=== PATIENT | female | born 1995 | race Caucasian/White ===

== ENCOUNTER 2017-12-08 17:03 | Emergency (ER) | payer OTHER ==
[2017-12-08 17:18] VITALS: BP 128/77
--- NOTE | 2017-12-08 17:37 | UC ---
Throat Pain/Nasal Kyree HPI - HPI Summary HPI Summary: Patient is a 22-year-old was otherwise healthy female presenting to the with chief complaint of throat pain, sinus congestion, sore throat, teeth pain, cough and has had low-grade fevers. Does have been present for 1.5 weeks. She denies any sweats or chills. Fever on arrival is 100.7. She has been otherwise healthy. She takes no medications. Denies any allergies or history of sinus infections. Denies any history of URI. We'll symptoms have remained constant, they have not worsened or improved. Symptoms are aggravated by nothing and alleviated with nothing. She is also having problems with sleep over the past 2 nights. - History of Current Complaint Chief Complaint: UCRespiratory Stated Complaint: HEADACHE, SINUS COMPLAINT Time Seen by Provider: 12/08/17 17:15 Hx Obtained From: Patient Hx Last Menstrual Period: 11/21/17 ?: No Onset/Duration: Sudden Onset Severity: Moderate Pain Intensity: 0 Pain Scale Used: 0-10 Numeric - Epiglottits Risk Factors Epiglottis Risk Factors: Negative - Allergies/Home Medications Allergies/Adverse Reactions: Allergies Allergy/AdvReac Type Severity Reaction Status Date / Time No Known Allergies Allergy Verified 12/08/17 17:18 PMH/Surg Hx/FS Hx/Imm Hx Previously Healthy: Yes - Surgical History Surgical History: None - Social History Occupation: Employed Full-time Lives: With Family Alcohol Use: None Substance Use Type: None Smoking Status (MU): Never Smoked Tobacco Review of Systems Constitutional: Negative Skin: Negative Eyes: Negative ENT: Sore Throat, Nasal Discharge, Sinus Congestion, Sinus Pain/Tenderness Respiratory: Negative Cardiovascular: Negative Motor: Negative Neurovascular: Negative Musculoskeletal: Negative Neurological: Headache All Other Systems Reviewed And Are Negative: Yes Physical Exam Triage Information Reviewed: Yes Appearance: Well-Appearing, No Pain Distress, Well-Nourished Vital Signs: Initial Vital Signs Temp 100.1 F 12/08/17 17:12 Pulse 108 12/08/17 17:12 Resp 18 12/08/17 17:12 BP 128/77 12/08/17 17:12 Pulse Ox 100 12/08/17 17:12 Vital Signs Reviewed: Yes Eye Exam: Normal Dental: Positive: Other: - No evidence of dental abscess or lesions, pain on palpation worse to the right sided lower jaw Neck exam: Normal Neck: Positive: Supple, Enlarged Nodes @ - bilateral cervical anterior Respiratory: Positive: Chest non-tender, Lungs clear Cardiovascular Exam: Normal Cardiovascular: Positive: RRR Musculoskeletal Exam: Normal Musculoskeletal: Positive: Strength Intact Psychological: Positive: Normal Response To Family Skin Exam: Normal Throat Pain/Nasal Course/Dx - Course Course Of Treatment: During the course of treatment, vital signs are noted to be tachycardic and with an elevated temperature at 100.7. She took one Tylenol yesterday and states this did not improve her symptoms. On physical examination her lungs are CTA, RRR. Only slight pain to palpation of the maxillary sinuses. Pain to T palpation of the jaw. She endorses copious amount of green discharge from bilateral nares and endorses a mild headache. Denies any visual changes. Endorses throat pain however no pharyngeal erythema or exudates are noted. Bilateral LAD to cervical anterior lymph nodes is noted. She is given Augmentin and is encouraged to wait approximate 2-3 days prior to taking this medication to allow for a possible improvement of symptoms with [id number] vitamins, fluids, Flonase and Sudafed. She is okay with this plan at discharge. I strongly encouraged her to follow up with her PCP for any worsening or changing symptoms. - Differential Dx/Diagnosis Provider Diagnoses: Sinusitis Discharge - Sign-Out/Discharge Documenting (check all that apply): Discharge/Admit/Transfer - Discharge Plan Condition: Stable Disposition: HOME Prescriptions: Amoxicillin/Clavulanate TAB* [Augmentin TAB 875*] 875 mg PO BID #14 tab Fluticasone NASAL SPRAY 50MCG* [Flonase NASAL SPRAY 50MCG*] 2 spray BOTH NARES DAILY #1 btl Pseudoephedrine HCl [Sudafed 24-Hour] 240 mg PO DAILY #10 tab.er.24h Patient Education Materials: Sinusitis (ED), Upper Respiratory Infection (ED), Warm Compress or Soak (ED) Referrals: Ramiro Contreras MD [Primary Care Provider] - Additional Instructions: I have given you information on upper respiratory infections as well as sinus infections. If you do not have any improvement in the next few days, take the Augmentin twice daily Flonase 2 sprays each near once daily for any congestion Sudafed, take one tablet in the morning Drink plenty of fluids (10 glasses of water daily) [id number] zinc and emergent-C powder and Airborne (chewables or gummies or tabs) will also help with symptoms and improve the timing of year sinus infection - Billing Disposition and Condition Condition: STABLE Disposition: Home
== END 2017-12-08 18:05 | disposition home or self-care (01) ==
LOC: UCEAST 17:03
DX: J32.9 Chronic sinusitis, unspecified (principal)
CPT/HCPCS: 87651; 99202; G0463

== ENCOUNTER 2018-05-04 16:48 | Emergency (ER) | payer BC, OTHER ==
[2018-05-04 17:15] VITALS: BP 134/79
--- NOTE | 2018-05-04 17:36 | UC ---
Abdominal Pain Female HPI - HPI Summary HPI Summary: Patient presents with an unremarkable past medical history. She presents with complaints of epigastrium pain onset 4-5 days. She states the pain does not radiate, and not influenced by food or any empty stomach. She describes it as sharp ad a times will have some dizziness. She denies fever, chills, nausea, vomiting, diarrhea, dysuria, abnormal vaginal discharge or bleeding. She denies any travel, but does report she had had ill co-workers. - History of Current Complaint Chief Complaint: UCAbdominalPain Stated Complaint: ABD PAIN Time Seen by Provider: 05/04/18 17:20 Hx Obtained From: Patient Hx Last Menstrual Period: 04/11/18 ?: No - LMP 3 week ago. Onset/Duration: Lasting Hours Timing: Intermittent Episodes Lasting: Severity Initially: Moderate Severity Currently: None Pain Intensity: 4 Location: Epigastric Radiates: No Character: Sharp Aggravating Factor(s): Nothing Alleviating Factor(s): Nothing Associated Signs and Symptoms: Positive: Dizzy Allergies/Adverse Reactions: Allergies Allergy/AdvReac Type Severity Reaction Status Date / Time No Known Allergies Allergy Verified 05/04/18 17:15 Home Medications: Home Medications Acetaminophen [Pain Relief] 325 mg PO ONCE PRN 05/04/18 [History Confirmed 05/04] PMH/Surg Hx/FS Hx/Imm Hx Previously Healthy: Yes - Surgical History Surgical History: None - Family History Known Family History: Negative: Cardiac Disease, Hypertension - Social History Occupation: Student Lives: Alone Alcohol Use: None Substance Use Type: None Smoking Status (MU): Never Smoked Tobacco Review of Systems All Other Systems Reviewed And Are Negative: Yes Constitutional: Positive: Negative Skin: Positive: Negative Eyes: Positive: Negative ENT: Positive: Negative Respiratory: Positive: Negative Cardiovascular: Positive: Negative Gastrointestinal: Positive: Abdominal Pain Genitourinary: Positive: Negative Motor: Positive: Negative Neurovascular: Positive: Negative Musculoskeletal: Positive: Negative Neurological: Positive: Negative Psychological: Positive: Negative Physical Exam Triage Information Reviewed: Yes Appearance: Well-Appearing Vital Signs: Initial Vital Signs Temp 99 F 05/04/18 17:10 Pulse 78 05/04/18 17:10 Resp 18 05/04/18 17:10 BP 134/79 05/04/18 17:10 Pulse Ox 100 05/04/18 17:10 Vital Signs Reviewed: Yes Eye Exam: Normal ENT Exam: Normal Neck exam: Normal Respiratory Exam: Normal Abdominal Exam: Other - tenderness on palpation of the epigasrium Bowel Sounds: Positive: Present Skin Exam: Normal Abd Pain Female Course/Dx - Course Course Of Treatment: Patient presents with an unremarkable past medical history. She presents with 4-5 days of epigastrium pain that has been intermittent. On exam she was not having pain, normal vital signs, and nontoxic appearance. I discussed with her that if she wanted to have a complete work-up today she would have to go to the ER . I discussed differential possibilities of this type of pain could be gallbladder disease, PUD, viral syndrome, early appendicits. I also discussed my limitations at this site at this time to throughly evaluate and precisly diagnose her symptoms today. However, based on her presentation, clincial findings and stability I thought it reasonable to treat her conservativity with a trial of carafate 1 g, QID and that she should schedule an appointment with her PCP or if her symptoms became worse to go to the ER at once. - Differential Dx/Diagnosis Differential Diagnosis: Other - ABDOMINAL PAIN GASTRITIS Provider Diagnoses: ABDOMINAL PAIN. GASTRITIS. PUD. Early appendicitis. H. pylori. viral syndome Discharge - Sign-Out/Discharge Documenting (check all that apply): Patient Departure All imaging exams completed and their final reports reviewed: No Studies - Discharge Plan Condition: Stable Disposition: HOME Prescriptions: Sucralfate TAB* [Carafate*] 1 gm PO QID #40 tab Patient Education Materials: Gastritis (DC) Referrals: No Primary Care Phys,NOPCP [Primary Care Provider] - Additional Instructions: Patient understands that I am treating her based on my clinical suspicion and I was not able to perform any testing that would prove this at this time. Patient will follow up with pcp. - Billing Disposition and Condition Condition: STABLE Disposition: Home
== END 2018-05-04 17:38 | disposition home or self-care (01) ==
LOC: UCEAST 16:48
DX: K29.70 Gastritis, unspecified, without bleeding (principal); K27.9 Peptic ulcer, site unspecified, unspecified as acute or chronic, without hemorrhage or perforation; K37 Unspecified appendicitis; B96.81 Helicobacter pylori [H. pylori] as the cause of diseases classified elsewhere; B34.9 Viral infection, unspecified
CPT/HCPCS: 99212; G0463

== ENCOUNTER 2018-12-12 22:25 | Inpatient (IN) | payer BC ==
[2018-12-12] MEDS ORDERED: Lactated Ringers 1000 ML Bag* 1,000 ML IV SCH (23:45)
[2018-12-12] MEDS ORDERED: Buffered Lidocaine 1% SYRIN* 1 ML/SYRINGE INTRADERM ONE (23:53)
[2018-12-12] MEDS ORDERED: Promethazine INJ(RESTRICTED)* 25 MG/ML 1 ML VIAL IV ONE (23:53)
[2018-12-12] MEDS ORDERED: Nalbuphine* 10 MG/ML 1 ML VIAL IV ONE (23:53)
[2018-12-12] MEDS ORDERED: Lactated Ringers 1000 ML Bag* 1,000 ML IV ONE (23:53)
[2018-12-13 00:07] LABS: ABS Basophils 0.1 10^3/ul (0-0.2); ABS Lymphocytes 0.9 10^3/ul (1.0-4.8); ABS Monocytes 0.5 10^3/ul (0-0.8); ABS Neutrophils 13.1 10^3/ul (1.5-7.7); Hematocrit 34 % (35-47); Hemoglobin 11.2 g/dL (12.0-16.0); Lymphocyte % 6.3 %; Mean Corpuscular HGB Conc 33 g/dL (31-36); Mean Corpuscular Hemoglobin 26 pg (27-31); Mean Corpuscular Volume 78 fL (80-97); Mean Platelet Volume 8.6 fL (7.4-10.4); Platelet Count 295 10^3/uL (150-450); Red Blood Count 4.35 10^6 /uL (3.70-4.87); Red Cell Distribution Width 15 % (10-15); White Blood Count 14.6 10^3/uL (3.5-10.8)
[2018-12-13 00:30] LABS: Albumin 3.8 g/dL (3.2-5.2); Albumin/Globulin Ratio 1.1 (1-3); BUN/Creatinine Ratio 15.3 (8-20); Calcium 9.5 mg/dL (8.6-10.3); EGFR African American 121.5 (>60); EGFR Non-African American 100.4 (>60); Globulin 3.6 g/dL (2-4); Total Bilirubin 0.3 mg/dL (0.2-1.0); Total Protein 7.4 g/dL (6.4-8.9); Uric Acid 6.7 mg/dL (2.3-6.6)
--- NOTE | 2018-12-13 00:33 | HP ---
General Information - Reason for Visit , IUP@37+1, SROM, labor - General Information Maternal Age: 23 Grav: 1 Para: 0 SAB: 0 IEA: 0 Estimated Due Date: 01/01/19 Determined By: Early Ultrasound Gestational Age in Weeks/Days: 37+1 Maternal Blood Type and Rh: O Positive - Results this Serology/RPR Result: Non-Reactive Rubella Result: Immune HBsAg Result: Negative HIV Result: Negative GBS Culture Result: Negative Past Medical History Pertinent Past Medical History: Non-Contributory Past Medical History Comment: No current medical problems Pertinent Past Surgical History: None Pertinent Family History: Non-Contributory - Antepartal Records Antepartal Records: Reviewed, Uncomplicated Review of Systems Constitutional: Uncomfortable CV Complaint: No Respiratory: Shortness of Breath: No Gastrointestinal: No Nausea/Vomiting, Normal Bowel Movement Genitourinary: Leaking Fluid, No Dysuria, No Bleeding Musculoskeletal: Back Pain, Contractions Neurological: No Headache, No Visual Changes Movement: Normal Exam Allergies/Adverse Reactions: Allergies No Known Allergies Allergy (Verified 12/12/18 23:09) Temp 98.7, HR 88, RR 18, 145/91, O2 99 Lab Values - Entire Visit: Laboratory Tests 12/12/18 12/12/18 22:45 23:55 WBC 14.6 H RBC 4.35 Hgb 11.2 L Hct 34 L MCV 78 L MCH 26 L MCHC 33 RDW 15 Plt Count 295 MPV 8.6 Neut % (Auto) 89.9 Lymph % (Auto) 6.3 Sandoval % (Auto) 3.2 Eos % (Auto) 0.0 Baso % (Auto) 0.6 Absolute Neuts (auto) 13.1 H Absolute Lymphs (auto) 0.9 L Absolute Monos (auto) 0.5 Absolute Eos (auto) 0.0 Absolute Basos (auto) 0.1 Absolute Nucleated RBC 0.0 Nucleated RBC % 0.0 Vag Amniotic Fld Detect Positive - Measurements Height: 5 ft 5 in Weight: 139 lb Weight in lbs: 139.426152 Body Mass Index (BMI): 23.1 Pre- Weight: 108 lb Weight Gained This : 31 lbs and 0 ozs - Exam Breast: Breast Exam Deferred CVA: No CVA Tenderness Extremities: No Edema Heart: Normal Rhythm/Heart Sounds HEENT: No Significant Findings Lungs: Clear Bilaterally Rectal: Rectal Exam Deferred Reflexes: DTR 2+ - Abdominal Exam Abdomen Exam: Non-Tender - Ultrasound/Biophysical Profile Ultrasound Status: Not Done Targeted Exam Findings Estimated Weight: 6lbs Cervical Exam: 3cm - Exam by RN Effacement: 70% Station: -1 Presenting Part: Vertex Membrane Status: SROM Amniotic Fluid Evaluation: Positive ROM Plus EFM Findings - External Monitor Findings Baseline Heart Rate: 130 External Monitor Findings: Accelerations Present, Variability Moderate - Period of consistent variable decels with contractions, resolved with fluids, O2 , position changes Contractions: Regular - q2-3 mins Assessment/Plan - Assessment , IUP@37+1, SROM/Labor GBS negative, O+ SROM 0900, clear fluid, afebrile No evidence of metabolic acidemia Regular contractions, pt uncomfortable PARQ discussion about pain medication options. Pt requesting epidural. Pt with elevated BPs on admission, +1 UA dip towards end of - Plan Plan: Admit - Anticipate Vaginal Delivery Plan Comment: Admit to L&D Epidural now, anesthesia aware VE PRN PEC labs anticipate progression to - Date/Time of Admission Date of Admission: 12/13/18 Time of Admission: 23:30
[2018-12-13] MEDS ORDERED: OBEPIDURAL* 250 ML EPIDURAL ONE (00:57)
[2018-12-13] MEDS ORDERED: Famotidine TAB* 20 MG PO PRN (01:35)
[2018-12-13] MEDS ORDERED: Phenylephrine 40 MCG/ML SYRINGE IV PUSH PRN (01:35)
[2018-12-13] MEDS ORDERED: Lactated Ringers 1000 ML Bag* 1,000 ML IV ONE (01:35)
[2018-12-13] MEDS ORDERED: Sodium Citrate/Citric Acid* 15 ML UDC PO PRN (01:35)
[2018-12-13] MEDS ORDERED: OBEPIDURAL* 250 ML EPIDURAL SCH (02:00)
[2018-12-13] MEDS ORDERED: Lactated Ringers 1000 ML Bag* 1,000 ML IV SCH ×2 (02:00→06:00)
[2018-12-13] MEDS ORDERED: Oxytocin in LR* 20 UNITS/1,000 ML BAG IVPB ONE (03:44)
[2018-12-13 04:07] LABS: Urine Benzodiazepine Screen None Detected (None Detect); Urine Opiates Screen None Detected (None Detect)
[2018-12-13] MEDS ORDERED: Dibucaine 1% 28.35 GM TUBE PR PRN (05:21)
[2018-12-13] MEDS ORDERED: Glycerin ADULT SUPP PR PRN (05:21)
[2018-12-13] MEDS ORDERED: Witch Hazel PAD* JAR TOPICAL PRN (05:21)
[2018-12-13] MEDS ORDERED: Acetaminophen TAB* 325 MG PO PRN (05:21)
--- NOTE | 2018-12-13 05:33 | PN ---
Progress Note - Progress Note Date of Service: 12/13/18 Note: Call from RN, pt feels like she needs to have a bowel movement Pt resting in bed, comfortable, with CEI infusing VE: 10/100/+2 FHR: 125, moderate variability, +accels, occasional variable decel - no evidence of acidemia Contractions: q3-4mins - regular contraction pattern Requesting NICU presence given GA Instructed pt on how to push. Pt to begin pushing.
--- NOTE | 2018-12-13 05:38 | PROCNOTE ---
[facility] OB: Delivery Note - Delivery A Date of : 12/13/18 Time of : 04:58 [place] Sex: Male Weight at : 5 lb Score 1 Minute: 7 Score 5 Minutes: 9 Gestational Age in Weeks and Days at Delivery: 37 Weeks and 2 Days Delivery Method: Spontaneous Vaginal Labor: Spontaneous Did Patient attempt ?: N/A, No Previous Amniotic Fluid: Clear Estimated Blood Loss: 250 Anesthesia/Analgesia: CEI for Labor Delivered By: Zaira Maynard - Perineum Perineal Injury: Abrasion Only - Not Repaired Perineal Injury Comment: Abrasion - right labium Perineal Repair: None - Events Delivery Events of Note: Pitocin Only After Delivery Delivery Events of Note Comment: Nuchal cord x1, reduced on the perineum - Additional Delivery Notes Additional Delivery Notes: 23 yo at 37+2 weeks admitted in active labor. SROM at 0900 on 12/12, clear fluid. Progressed to complete with CEI infusing. Pt began pushing spontaneously at 0349 on 12/13. of liveborn male at 0458. OA to HOMA, shoulder followed easily, nuchal x1 - reduced on the perineum. Infant to mother' s chest, dried and stimulated with spontaneous cry. 's 9 and 9. weight 2240 grams, 5lbs. Considered SGA - hypoglycemia protocol in place. Cord clamped and cut by delivering provider. Spontaneous chelly delivery of intact placenta at 0506. Active management of 3rd stage, Pitocin infusing, fundus firm. EML 250 mL. After careful inspection an abrasion was noted on the right labium. Perineum intact. Infant at breast feeding. Mother and in stable condition at time of note.
[2018-12-13] MEDS ORDERED: Oxytocin in LR* 20 UNITS/1,000 ML BAG IVPB SCH (06:00)
[2018-12-13] MEDS ORDERED: Simethicone TAB* 80 MG TAB.CHEW PO SCH (08:30)
[2018-12-13] MEDS: Docusate CAP* 100 MG PO SCH ×3 (10:06→20:29)
[2018-12-13] MEDS: Ibuprofen TAB* 600 MG PO PRN (20:29)
[2018-12-14] MEDS: Ibuprofen TAB* 600 MG PO PRN ×2 (03:16→16:18)
[2018-12-14 05:59] LABS: ABS Basophils 0.1 10^3/ul (0-0.2); ABS Eosinophils 0.1 10^3/ul (0-0.6); ABS Lymphocytes 1.7 10^3/ul (1.0-4.8); ABS Monocytes 0.6 10^3/ul (0-0.8); ABS Neutrophils 10.1 10^3/ul (1.5-7.7); Eosinophil % 0.6 %; Hematocrit 28 % (35-47); Hemoglobin 9.2 g/dL (12.0-16.0); Lymphocyte % 13.7 %; Mean Corpuscular HGB Conc 33 g/dL (31-36); Mean Corpuscular Hemoglobin 26 pg (27-31); Mean Corpuscular Volume 78 fL (80-97); Mean Platelet Volume 8.1 fL (7.4-10.4); Platelet Count 232 10^3/uL (150-450); Red Blood Count 3.58 10^6 /uL (3.70-4.87); Red Cell Distribution Width 16 % (10-15); White Blood Count 12.6 10^3/uL (3.5-10.8)
[2018-12-14] MEDS: Ferrous Gluconate TAB* 324 MG TAB PO SCH ×2 (08:38→21:00)
[2018-12-14] MEDS: Docusate CAP* 100 MG PO SCH ×3 (08:38→22:16)
[2018-12-15] MEDS: Docusate CAP* 100 MG PO SCH (08:37)
[2018-12-15] MEDS: Ferrous Gluconate TAB* 324 MG TAB PO SCH (08:38)
[2018-12-15 09:07] VITALS: BP 133/85
== END 2018-12-15 13:20 | disposition home or self-care (01) | DRG 560 ==
LOC: MCHOBOUT 22:25 → MCHOB 23:41
PROVIDERS: ADMIT Advanced Practice Midwife; ATTEND Advanced Practice Midwife
PROC: 10E0XZZ Delivery of Products of Conception, External Approach (ICD-10-PCS; principal; 2018-12-13)
PROC: 4A1HXCZ Monitoring of Products of Conception, Cardiac Rate, External Approach (ICD-10-PCS; 2018-12-13)
DX: O76 Abnormality in fetal heart rate and rhythm complicating labor and delivery (principal); Z37.0 Single live birth; O69.81X0 Labor and delivery complicated by cord around neck, without compression, not applicable or unspecified; O71.89 Other specified obstetric trauma; Z3A.37 37 weeks gestation of pregnancy
CPT/HCPCS: 36415; 80053; 80307; 84112; 84550; 85025; 86850; 86900; 86901; A9270-GY

== ENCOUNTER 2020-05-19 19:48 | Inpatient (IN) ==
[2020-05-19] MEDS ORDERED: Glycerin ADULT 2.4 gm SUPP PR PRN (20:06)
[2020-05-19] MEDS ORDERED: Buffered Lidocaine 1% SYRIN 1 ml INTRADERM ONE (20:06)
[2020-05-19] MEDS ORDERED: Witch Hazel PAD JAR TOPICAL PRN (20:06)
[2020-05-19] MEDS ORDERED: Dibucaine 1% OINT 28.35 GM TUBE PR PRN (20:06)
[2020-05-19] MEDS ORDERED: Lactated Ringers 1000 ml BAG 1,000 ML IV ONE (20:06)
[2020-05-19] MEDS ORDERED: Lactated Ringers 1000 ml BAG 1,000 ML IV SCH ×2 (21:00)
[2020-05-19] MEDS ORDERED: Oxytocin 10 UNITS/ML 1 ML VIAL IM ONE (23:11)
[2020-05-20] MEDS ORDERED: Lidocaine 1% VIAL 10 MG/ML VIAL ONE (00:46)
[2020-05-20 04:47] LABS: Urine Benzodiazepine Screen None Detected (None Detect); Urine Cannabinoids Screen None Detected (None Detect); Urine Opiates Screen None Detected (None Detect)
[2020-05-20 06:04] LABS: ABS Basophils 0.1 10^3/ul (0-0.2); ABS Lymphocytes 1.3 10^3/ul (1.0-4.8); ABS Monocytes 0.8 10^3/ul (0-0.8); ABS Neutrophils 12.2 10^3/ul (1.5-7.7); Eosinophil % 0.2 %; Hematocrit 31 % (35-47); Hemoglobin 10.2 g/dL (12.0-16.0); Lymphocyte % 9.1 %; Mean Corpuscular HGB Conc 33 g/dL (31-36); Mean Corpuscular Hemoglobin 26 pg (27-31); Mean Corpuscular Volume 80 fL (80-97); Mean Platelet Volume 8.5 fL (7.4-10.4); Platelet Count 261 10^3/uL (150-450); Red Blood Count 3.85 10^6 /uL (3.70-4.87); Red Cell Distribution Width 15 % (10-15); White Blood Count 14.3 10^3/uL (3.5-10.8)
[2020-05-20 20:15] VITALS: BP 124/91
== END 2020-05-20 21:34 | disposition home or self-care (01) | DRG 560 ==
LOC: MCHOBOUT 19:48 → MCHOB 19:50
PROVIDERS: ADMIT Obstetrics & Gynecology; ATTEND Obstetrics & Gynecology